=== PATIENT | female | born 1955 | race African-American/Black ===

== ENCOUNTER 2025-04-25 15:51 | Inpatient (IN) | payer OTHER, SELFPAY ==
[2025-04-25] VITALS (14 sets, daily range): BP systolic 100–136; BP diastolic 45–85; BMI 36.0
--- NOTE | 2025-04-25 10:24 | ED.GENMED ---
History of Present Illness
General
Chief Complaint: Weakness
Source: patient
Exam Limitations: clinical condition
Time Seen by Provider: 04/25/25 10:07
Nursing documentation reviewed up to this point in time: agreed with
History of Present Illness
History of Present Illness:
pt is a 69 y/o F
according to EMS 2 weeks post op kidney TXP [facility]
here with fever
pt has also apparently had some urinary incontinence and is wearing depends
she has a cough
pt is not reliable historian
For the patient's family for the past week she has been unable to get herself to the bathroom in time, she has been using depends, she is just generally weak and having urinary incontinence. Last night they noticed that she was breathing 'heavy'
and had a little bit of a cough but then this morning they noticed a fever of 101. They called the transplant center and spoke with the on-call transplant surgeon who recommended that she get taken to the emergency department. Apparently according
to the transplant surgeon whom I spoke with myself he says that her creatinine was 3.3 on blood work from a few days ago and her urinalysis was positive, preliminary culture which was positive for E. coli and staph. He says the sensitivities are
not back yet. He recommended broad-spectrum antibiotics and transfer to [facility] for admission.
Review of Systems
Review of Systems
Allergies reviewed?: Yes
Unable to obtain full review of systems at this time due to: due to acuity
All Other Systems: Not applicable
Phy Exam
Physical Exam
Physical Exam:
e coli
dr. aragon nephrology txp
cr 3.3
no imaging
GENERAL: Alert , tachypneic, weak
EYE: pupils equal and reactive
NECK: Supple
ENT: o/p clr, dry
CARDIAC: Regular rate and rhythm .
LUNGS: Clear breath sounds bilaterally, no acute respiratory distress, no wheezes/rales/rhonchi
ABDOMEN: Soft, without focal tenderness, no r/g, no cvat, normal bowel sounds
Depends soaked with foul-smelling urine
NEUROLOGICAL: Alert and oriented, no focal neuro deficits
SKIN: Warm and dry, skin intact.
MUSCULOSKELETAL: No edema, well perfused. neg diallo's sign
PSYCH: Normal and appropriate interaction.
Sepsis
Sepsis Screening
Sepsis Assessment: Sepsis Ruled Out
Sepsis Screen
Sepsis Screen: Sepsis Ruled Out
Date: 04/25/25
Time: 15:03
Course
Orders/Labs/Results
Orders:
Orders
04/25/25 10:21
Electrocardiogram (*1) Urgent
Reason for Study: Other
Other Reason for Exam: sepsis
Cardiac Monitoring- Treatment ONCE
EKG- Treatment ONCE
Straight cath- Treatment ONCE
Tacrolimus (Prograft - FK506) [S] Urgent
0.9% Sodium Chloride 1000 ml [Nss] 1,900 ml IV NOW STA
CR Chest Portable - 1 View Urgent
Comment:
Reason For Exam: FEVER, COUGH
Reason Study Needs to be Portable: Patient Unstable
04/25/25 10:25
COVID-19 Antigen Urgent
Source: Nasal Swab
Complete Blood Count/With Diff Urgent
Comprehensive Metabolic Panel Urgent
Lactic Acid Q4H
Comment: CANCEL 2nd LACTIC ACID IF 1st LACTIC ACID IS LESS THAN 2
Blood Culture Q30M
RERE Source: Blood/Venous
Specimen Description:
Influenza A+B Rapid Molecular Urgent
RERE Source: Nasal Swab
Specimen Description:
04/25/25 10:29
Urinalysis Reflex To Culture Urgent
Date Specimen was Collected: 04/25/25
Time Specimen was Collected: 10:28
Urine Microscopic Reflex Cult Urgent
Urine Culture Urgent
RERE Source: U
Specimen Description:
Date Specimen was Collected: 04/25/25
Time Specimen was Collected: 10:28
04/25/25 11:03
Cefepime HCl [Maxipime] 1,000 mg IV NOW STA
04/25/25 12:11
Blood Culture Q30M
RERE Source: Blood/Venous
Specimen Description:
04/25/25 12:13
Sterile Water [Sterile Water For Injection] 10 ml .ROUTE .STK-MED ONE
04/25/25 12:30
Acetaminophen [Tylenol] 1,000 mg PO NOW STA
04/25/25 12:37
Acetaminophen 1000MG/100Ml [Ofirmev] 1,000 mg in 100 ml IV ONCE
Acetaminophen IV Indication:: ED Narcotic Naive Pt-ONCE
Prednisone [Deltasone] 5 mg PO NOW STA
04/25/25 12:[address] [Myfortic Delayed Rel.] 360 mg PO NOW STA
Tacrolimus [Prograf] 1 mg PO NOW STA
04/25/25 14:30
Lactic Acid Q4H
Comment: CANCEL 2nd LACTIC ACID IF 1st LACTIC ACID IS LESS THAN 2
Abnormal Lab Results
04/25/25 04/25/25
10:25 10:29
RBC 2.79 L 10^6/uL
(4.70-6.10)
Hgb 8.3 L g/dL
(13.0-18.0)
Hct 26.6 L %
(39.0-52.0)
MCV 95.3 H fL
(80.0-94.0)
MCHC 31.2 L g/dL
(33.0-37.0)
RDW 19.0 H %
(11.5-14.5)
MPV 11.1 H fL
(7.4-10.4)
Abs Immat Gran (auto) 0.3 H 10^3/uL
(0-0.05)
Absolute Neuts (auto) 7.9 H 10^3/uL
(1.4-6.5)
Absolute Lymphs (auto) 0.2 L 10^3/uL
(1.2-3.4)
Absolute Monos (auto) 0.7 H 10^3/uL
(0.1-0.6)
Immature Gran % 3.2 H %
(0-0.5)
Neutrophils % 86.5 H %
(42.2-75.2)
Lymphocytes % 2.6 L %
(20.5-51.1)
Sodium 134 L mmol/L
(135-145)
BUN 74 H mg/dl
(7-17)
Creatinine 3.6 H mg/dL
(0.6-1.0)
Calcium 10.4 H mg/dl
(8.4-10.2)
Ur Occult Blood Reflex 4+ A
(Negative)
Leukocyte Esterase Rfl 3+ A
(Negative)
Urine RBC >100 A /HPF
(0-2)
Urine WBC (Reflex) >100 A /HPF
(0-5)
Urine Bacteria (Reflex) Moderate A
(Negative)
Urine Albumin (Reflex) 3+ A
(Neg - Trace)
04/25/25 10:25
04/25/25 10:25
Vital Signs
Initial and Last Documented VS:
Initial Vital Signs
Temp Pulse Resp Pulse Ox
39.4 C H 80 25 95
04/25/25 10:04 04/25/25 10:04 04/25/25 10:04 04/25/25 10:04
Last Documented Vital Signs
Temp Pulse Resp BP Pulse Ox
37.4 C 78 24 136/49 96
04/25/25 14:18 04/25/25 13:00 04/25/25 11:00 04/25/25 11:00 04/25/25 11:12
MDM/Problems Addressed
Differential Diagnosis Includes:
fever, transplant rejection, UTI/pyelo, pneumonia, covid
MDM/Problems Addressed:
69 y/o F
s/p renal TXP 02/21/25
gen weakness since coming home from [facility] 8 days ago
family says she was walking initially but the last couple of days she has not made it to the bathroom and she is sitting in it. She has also had a bit of difficulty breathing that started last night, breathing faster and occasionally coughing or
what sounded like choking on her spit. She is not vomiting. They noticed a temperature this morning of 101 and called the transplant center and spoke with Dr. Aragon who recommended that she come to the hospital. Patient came via EMS. She is
globally weak but awake and oriented. She is able to answer questions. She is tachypneic, appears dry. She has no abdominal tenderness. Patient had foul-smelling urine soaked depends, was incontinent but we were able to straight cath her to show
cloudy slightly pink-tinged urine. She also is occasionally coughing. She has not hypoxic. I spoke with Dr. Aragon myself who requested that the patient come to the hospital at [facility] to be admitted. At the this time he has results
from urine culture from 2 days ago showing E. coli without sensitivities. He recommended broad-spectrum antibiotics. The patient's baseline creatinine from 2 days ago was 3.3
He did not feel that the patient needed any imaging at this time. Will give her fluids, Tylenol, draw 2 sets of blood cultures and give antibiotic
04/25/2025 1502 PM
Unfortunately there are no beds at [facility] and they did not know when she would receive a bed so I did admit her to our hospital pending transfer and signed out to the hospitalist
*Pulse Oximetry
SaO2: 95
Oxygen Mode of Delivery: Room air
Patient hypoxic: no (95)
*Critical Care Note
Total Time (30-74mins, 75-104mins- exclusive of procedures): Not Applicable
ED Attending Note
-
Portions of this chart may have been created with voice recognition software.� Occasional wrong word or��sound alike� substitutions may have occurred due to the inherent limitations of voice recognition software.
Discharge Plan
Departure
Patient Disposition: Acute Care Hospital
Date of Disposition: 04/25/25
Time of Disposition:
Patient with high blood pressure during this ER visit?: No
Condition: Fair
Covid-19: Not Applicable
Discharge Problem:
Acute UTI, Fever
Prescriptions:
No Action
valganciclovir 450 mg Tablet
450 mg PO SUTUTHSA@0700
nystatin 100,000 unit/mL suspension
5 ml PO QID
metoprolol succinate 50 mg tablet extended release 24 hr
50 mg PO HS
sulfamethoxazole-trimethoprim [Bactrim] 400-80 mg Tablet
1 tab PO MOWEFR@2000
prednisone 5 mg Tablet
5 mg PO DAILY
nifedipine 30 mg tablet extended release
30 mg PO DAILY
omeprazole 40 mg capsule,delayed release(DR/EC)
40 mg PO DAILY
sertraline 25 mg tablet
25 mg PO DAILY
bumetanide 1 mg tablet
5 mg PO DAILY
Renal-Joyce 0.8 mg Tablet
1 tab PO DAILY
hydroxychloroquine 200 mg tablet
200 mg PO DAILY
tacrolimus [Prograf] 1 mg Capsule
1 mg PO DAILY@0700
repaglinide 1 mg tablet
1 mg PO MEALS
tacrolimus [Prograf] 0.5 mg Capsule
0.5 mg PO DAILY@1900
rosuvastatin 20 mg tablet
20 mg PO HS
mycophenolate sodium [Myfortic] 360 mg Tablet,Delayed Release (Dr/Ec)
360 mg PO BID
Aranesp (in polysorbate) 40 mcg/0.4 mL syringe
40 mcg SC WEEKLY
insulin glargine [Lantus Solostar U-100 Insulin] 100 unit/mL (3 mL) insulin pen
10 unit SC HS
cholecalciferol (vitamin D3) [Vitamin D3] 50 mcg (2,000 unit) Capsule
50 mcg PO HS
Multaq 400 mg tablet
40 mg PO BID
Nulojix 250 mg Recon Soln
250 mg IV Q2W
Eliquis 2.5 mg tablet
2.5 mg PO BID
magnesium oxide 200 mg magnesium Tablet
200 mg PO BID
Referrals:
NONE,* [Family Provider, Internal Medicine]
Hospital Transfer
Other hospital: [facility]
I certify that the patient requires transfer: Yes
Discussed case with accepting physician: Moe
Reason for transfer: higher level of care and specialties available
Interventions
Interventions:
*Risk Screen - Suicide Last Done: 04/25/25 11:14
*General Assessment Last Done: 04/25/25 11:13
*Neglect/Abuse Screening Last Done: 04/25/25 11:14
*ED COVID-19 Vaccine History Last Done: 04/25/25 11:13
*ED Influenza Vaccine History Last Done: 04/25/25 11:13
Discharge Date and Time
Print Language: FAROESE
[2025-04-25 10:41] LABS: Hematocrit 26.6 % (39.0-52.0); Hemoglobin 8.3 g/dL (13.0-18.0); Mean Corp Hgb Conc. 31.2 g/dL (33.0-37.0); Mean Corpuscular Volume 95.3 fL (80.0-94.0); Nucleated Red Blood Cells % 0.4 % (-); Platelet Count 207 10^3/uL (130-400); Red Cell Dist. Width 19.0 % (11.5-14.5)
[2025-04-25 10:56] LABS: ALT (SGPT) 12 U/L (0-35); AST (SGOT) 16 U/L (14-36); Albumin 3.9 g/dl (3.5-5.0); Alkaline Phosphatase 65 U/L (38-126); Blood Urea Nitrogen 74 mg/dl (7-17); Calcium 10.4 mg/dl (8.4-10.2); Carbon Dioxide 23 mmol/L (22-30); Chloride 104 mmol/L (98-107); Estimated Creatinine Clearance 18 ml/min; Glucose 71 mg/dl (70-99); Potassium 4.6 mmol/L (3.5-5.1); Sodium 134 mmol/L (135-145); Total Protein 6.4 g/dl (6.3-8.2); eGFR 13.19
[2025-04-25 11:07] LABS: Urine Character Cloudy (Clear)
[2025-04-25 11:20] LABS: COVID-19 Antigen Negative (Negative)
[2025-04-25] MEDS: NSS 1900 ML IV (11:20)
[2025-04-25 11:57] LABS: Urine Red Blood Cell >100 /HPF (0-2)
[2025-04-25 12:00] LABS: Urine White Cell >100 /HPF (0-5)
[2025-04-25] MEDS: MAXIPIME 1000 MG IV (12:15)
[2025-04-25] MEDS: OFIRMEV 100 IV (12:49)
[2025-04-25] MEDS: MYFORTIC DELAYED REL. 360 MG PO ×2 (13:29→21:39)
[2025-04-25] MEDS: PROGRAF 1 MG PO (13:29)
[2025-04-25] MEDS: DELTASONE 5 MG PO (13:29)
--- NOTE | 2025-04-25 14:20 | W.PN.UPDATE ---
Update Note
Progress Note Update
This note serves as an addendum to the H&P by instructor flying JANE�
Guerita Becerra
No prior admission to
HPI
69F Recent KTP (02/21/25) at [facility] seen at ER:
- BIB EMS
- pw fever T max 103.0
- reports some urinary incontinence and is wearing depends pad
- per family for the past week so weak that she has been unable to get herself to the bathroom in time, she has been using depends
- having urinary incontinence.
- Last night they noticed that she was breathing 'heavy' and had a little bit of a cough but then this morning they noticed a fever of 101.
Family called t center and spoke with the on-call transplant surgeon who recommended that she get taken to the emergency department.
Per ER BURIAL VAULT SETTER who spoke with TP surgeon( Dr Aragon) reports that Cr 3.3 on blood work from a few days ago and her urinalysis was positive, preliminary culture which was positive for E. coli and staph. He says the sensitivities are not back yet.
He recommended broad-spectrum antibiotics and transfer to [facility] for admission.
Patient is accepted to [facility] but no bed yet per ER AP
PHX:
KTP on immunosuppressants
IDDM
Essential HTN
Chr eliquis
Relevant VS
Vital Signs
Temp Pulse Resp BP Pulse Ox
99.4 F ( T max 103 at ER ) 78 24 136/49 96
04/25/25 14:18 04/25/25 13:00 04/25/25 11:00 04/25/25 11:00 04/25/25 11:12
PE
Gen: Obese , class II BMI ( 35.9), looks tired but apprpriate
HEENT: anicteric , moist OM
Neck: supple
Lungs: Rhonchi both lungs R > L
Cor: RRR S1 S2
Abdomen:�soft NT NG
ASBESTOS TEXTILE SUPERVISOR: awake and alert
MS: wearing b/l compression stockings
Psych: Nl mood and affect
Relevant Data�
Labs
04/25/25 04/25/25
10: 14:30
WBC 9.1
Hgb 8.3 L
Plt Count 207
Sodium 134 L
Potassium 4.6
Chloride 104
Carbon Dioxide 23
BUN 74 H
Creatinine 3.6 H
eGFR 13.19
Lactic Acid 1.6 Pending
04/25/25
10:29
Urine Color Red
Urine Clarity Cloudy
Ur Occult Blood Reflex 4+ A
Leukocyte Esterase Rfl 3+ A
Urine RBC >100 A
Urine WBC (Reflex) >100 A
Urine Bacteria (Reflex) Moderate A
EKG
NORMAL SINUS RHYTHM
NON-SPECIFIC INTRA-VENTRICULAR CONDUCTION BLOCK
MINIMAL VOLTAGE CRITERIA FOR LVH, MAY BE NORMAL VARIANT ( Dmitriy product )
CANNOT RULE OUT SEPTAL INFARCT , AGE UNDETERMINED
ABNORMAL ECG
NO PREVIOUS ECGS AVAILABLE
CXR
Right suprahilar consolidation may reflect atelectasis, pneumonia or mass/lymphadenopathy.
Recommend correlation with any prior chest imaging. Consider further evaluation with dedicated contrast-enhanced CT chest.
NO PRIOR hospitalist admission:
ASSESSMENT & PLAN
Presumed sepsis due to complicated UTI of TP Kidney - s/p 1.9 L NS at ER
CONFECTIONERY DROPS MACHINE OPERATOR POS preliminary UCX positive for E. coli and staph - reports from TP surgeon per ER AP
- Somewhat HD status is stable
- UCx and BCx sent
- Agree with IV CFP
- Tylenol PRN for T > 100.5
- To consider ID consult if patient is still in [facility] in tomorrow AM
Renal insufficiency ( ANGELO ? ) of recent TP kidney ( [facility] donor ?)
- Prior HX HD via Lt arm AVF
- Hold Bumetanide to current presumed ANGELO ( curbside consult to Dr Herman)
- Trend Cr and UO
- Pending Tacrolimus level - unless it was done 1 hrs after the dose
- otherwise c/w all OP medications
- To consider Renal consult if patient is still in [facility] in tomorrow AM
Wheeze and Rhonchi R > Lt lungs
Right suprahilar consolidation
- c/w IV CFP
- add Azithromycin
- DuoNebs qid and PRN
Benign HTN
- c/w CONFECTIONERY DROPS MACHINE OPERATOR Metoprolol
IDDM
- to give only 50 % of CONFECTIONERY DROPS MACHINE OPERATOR Lantus
- add ISS low
HX Prx AF
- c/w CONFECTIONERY DROPS MACHINE OPERATOR Eliquis
DVT Px: on chr Eliquis
Full code
IP MS
--- NOTE | 2025-04-25 14:22 | HPS.HSE ---
Family Physician
-
Family Physician: * NONE
Chief Complaint
-
generalized weakness
History of Present Illness
Patient is a 69-year-old female with past medical history significant for chronic kidney disease s/p kidney transplant, hypertension, hyperlipidemia, GERD, chronic anemia, paroxysmal atrial fibrillation, type 2 diabetes and depression/anxiety who
presented to [facility] ED for evaluation of generalized weakness. Patient family brought patient for evaluation after speaking with transplant surgeon this morning and describing recent symptoms of inability to get herself to restroom related to
weakness, new onset incontinence, increased respiratory rate and fever. ED documentation states that surgeon reported that patients creatine was 3.3 a few days ago on blood work and urinalysis was positive and culture still pending final report
(preliminary report indicated E. coli and staph).
Medical History
Past Medical History
Past Medical History: Reports Other
Additional Past Medical History:
chronic kidney disease
hypertension
hyperlipidemia
GERD
chronic anemia
paroxysmal atrial fibrillation
type 2 diabetes
depression/anxiety
Past Surgical History: Reports Other
Additional Past Surgical History:
kidney transplant at [facility] 02/21/2025
LUE fistula
Social History
Tobacco: Former Smoker
Alcohol: None
Drug: None
Living: With Family
Family History
Family History: Not pertinent
Allergies / Home Medications
Allergies reflects when Allergies were last updated in [employer].
Home Medications with original date entered in [employer]
Allergy/Medication List:
Allergies
Allergy/AdvReac Type Severity Reaction Status Date / Time
No Known Allergies Allergy Unverified 04/25/25 10:03
Home Medications
apixaban 2.5 mg tablet (Eliquis) 2.5 mg PO BID 04/25/25
belatacept 250 mg intravenous solution (Nulojix) 250 mg IV Q2W 04/25/25
bumetanide 1 mg tablet 5 mg PO DAILY 04/25/25
cholecalciferol (vitamin D3) 50 mcg (2,000 unit) capsule (Vitamin D3) 50 mcg PO HS 04/25/25
darbepoetin adriana in polysorbat 40 mcg/0.4 mL in polysorbate injection syringe (Aranesp) 40 mcg SC WEEKLY 04/25/25
dronedarone 400 mg tablet (Multaq) 40 mg PO BID 04/25/25
hydroxychloroquine 200 mg tablet 200 mg PO DAILY 04/25/25
insulin glargine 100 unit/mL (3 mL) subcutaneous pen (Lantus Solostar U-100 Insulin) 10 unit SC HS 04/25/25
magnesium oxide 200 mg PO BID 04/25/25
metoprolol succinate 50 mg tablet,extended release 24 hr 50 mg PO HS 04/25/25
mycophenolate sodium 360 mg tablet,delayed release (Myfortic) 360 mg PO BID 04/25/25
nifedipine 30 mg tablet,extended release 30 mg PO DAILY 04/25/25
nystatin 100,000 unit/mL oral suspension 5 ml PO QID 04/25/25
omeprazole 40 mg capsule,delayed release 40 mg PO DAILY 04/25/25
prednisone 5 mg tablet 5 mg PO DAILY 04/25/25
repaglinide 1 mg tablet 1 mg PO MEALS 04/25/25
rosuvastatin 20 mg tablet 20 mg PO HS 04/25/25
sertraline 25 mg tablet 25 mg PO DAILY 04/25/25
sulfamethoxazole 400 mg-trimethoprim 80 mg tablet (Bactrim) 1 tab PO MOWEFR@199904/25/25
tacrolimus 0.5 mg capsule, immediate-release (Prograf) 0.5 mg PO DAILY@1900 04/25/25
tacrolimus 1 mg capsule, immediate-release (Prograf) 1 mg PO DAILY@0700 04/25/25
valganciclovir 450 mg tablet 450 mg PO SUTUTHSA@0704/25/25
vitamin B complex-vitamin C-folic acid 0.8 mg tablet (Renal-Joyce) 1 tab PO DAILY 04/25/25
Review of Systems
-
History Source: Patient and Other (chart review )
Constitutional: Reports Fever and Fatigue; Denies Chills
EENT: Denies Sore Throat
Respiratory: Reports Cough and Trouble Breathing (dyspnea ); Denies Hemoptysis
Cardiac: Denies Chest Pain, Diaphoresis, Palpitations or Syncope
Abdomen/GI: Denies Abdominal Pain, Nausea, Vomiting or Diarrhea
: Reports Frequency and Incontinence; Denies Dysuria or Urgency
Musculoskeletal: Denies Joint Pain
Skin: Denies Rash
Neurological: Reports Weakness; Denies Dizzy, Headache or Numbness
Endocrine: Denies Polyuria or Polydipsia
Hematologic/Lymphatic: Denies Bleeding
Physical Exam
Vital Signs
Vital Signs
Temp Pulse Resp BP Pulse Ox
99.4 F 78 24 136/49 96
04/25/25 14:18 04/25/25 13:00 04/25/25 11:00 04/25/25 11:00 04/25/25 11:12
Physical Exam
General: Well Developed, Well Nourished, Comfortable, Conversant and Obese
HEENT: NormoCephalic, PERRLA, Nose Appears Normal and Ears Appear Normal
Respiratory: Wheezes, Rhonchi, Non Labored Respirations and Other (moist cough observed ); No Rales or Crackles
Cardiac: Regular Rhythm and Peripheral Edema
GI: Soft, Non Tender, Non Distended and Normal Bowel Sounds
Musculoskeletal: No Clubbing and No Cyanosis
Skin: Warm, Dry and IV/Catheter Site
Neuro: Awake and AO x 3
Psych: Calm
Laboratory Results
-
04/25/25 10:25
04/25/25 10:25
Laboratory Results
Lactic Acid 1.6 mmol/L (0.7-2.0) 04/25/25 10:25
Total Bilirubin 0.9 mg/dl (0.2-1.3) 04/25/25 10:25
AST 16 U/L (14-36) 04/25/25 10:25
ALT 12 U/L (0-35) 04/25/25 10:25
Alkaline Phosphatase 65 U/L (38-126) 04/25/25 10:25
Data Reviewed
-
Diagnostic Radiology: Report Reviewed by me (CXR: Right suprahilar consolidation may reflect atelectasis, pneumonia or mass/lymphadenopathy. Recommend correlation with any prior chest imaging. Consider further evaluation with dedicated
contrast-enhanced CT chest.)
Lab Data: Labs Reviewed by me (hgb 8.3, hct 26.6, neut 86.5, Na 134, BUN 74, Creat 3.6, est CrCl 18, eGFR 13.19)
Impression/Plan
-
IMPRESSION/PLAN:
#urinary tract infection
generalized weakness, fever and new onset incontinence
out patient urinary cx: preliminary report indicated E. coli and staph
T-max 103.0
neut 86.5
EKG: NORMAL SINUS RHYTHM
NON-SPECIFIC INTRA-VENTRICULAR CONDUCTION BLOCK
MINIMAL VOLTAGE CRITERIA FOR LVH, MAY BE NORMAL VARIANT ( Irvona product )
CANNOT RULE OUT SEPTAL INFARCT , AGE UNDETERMINED
CXR: Right suprahilar consolidation may reflect atelectasis, pneumonia or mass/lymphadenopathy. Recommend correlation with any prior chest imaging. Consider further evaluation with
dedicated contrast-enhanced CT chest.
- Admit to med/surg
- IV Cefepime
#acute kidney injury on chronic kidney disease?
s/p kidney transplant at [facility] 02/21/2025
Na 134, BUN 74, Creat 3.6, est CrCl 18, eGFR 13.19
[facility] surgeon reported that patients creatine was 3.3 a few days ago
- continue tacrolimus and valganciclovir
- hold bumetanide
- trend BMP
#COPD
#pneumonia?
wheezing present, rhonchi R>L, with moist cough on assessment
Influenza: negative
Covid: negative
- start Azithromycin
- PRN DuoNebs
#hypertension
- continue nifedipine
#hyperlipidemia
- continue rosuvastatin
#GERD
- continue omeprazole
#chronic anemia
hgb 8.3, hct 26.6
- continue darbepoetin out patient
#paroxysmal atrial fibrillation
- continue dronedarone and metoprolol
#type 2 diabetes
- AccuCheck AC & HS
- SSI
- continue Lantus at half dose
- continue repaglinide
#depression/anxiety
- continue sertraline
Code status: Full code
DVT prophylaxis: Eliquis
--- NOTE | 2025-04-25 16:22 | CM ---
Chart reviewed and spoke with patient, dtr Giovanna and GILBERT at ED bedside
Per dtr [facility] has no bed today but plan is still to tx back to [facility]
Per dtr s/p Kidney transplant on 02/21/2025
pt was discharged to [facility] for rehab for 1 1/2 weeks then admitted back to [facility]
DC to [facility] again .
Prior to admission patient was living with dtr Giovanna and GILBERT in [place] for 1 week or so
Was open to [facility] at home
Pt lives alone in [place]
Dtr's place 1 story 2 PETTY
DME walker and cane
PLOF needs assistance with ADLs and ambulation
PCP Dr. Perez in [place]
RX plan yes
Pharmacy [facility] in [place]
HX of [facility] at home
HX of [facility]
DCP is tx back to [facility] hospital once bed available
CM will continue to follow up for dcp needs
[2025-04-25 21:28] LABS: Glucose - Point of Care 89 mg/dl (70-99)
[2025-04-25] MEDS: LANTUS 0.05 UNITS SC (21:38)
[2025-04-25] MEDS: MULTAQ 400 MG PO (21:39)
[2025-04-25] MEDS: CRESTOR 20 MG PO (21:40)
[2025-04-25] MEDS: ELIQUIS 2.5 MG PO (21:41)
[2025-04-25] MEDS: MAGNESIUM OXIDE 200 MG PO (21:41)
[2025-04-25] MEDS: TOPROL XL 50 MG PO (21:42)
[2025-04-25] MEDS: VITAMIN D3 (cholecalciferol) 50 MCG PO (21:42)
[2025-04-25] MEDS: MYCOSTATIN ORAL SUSPENSION 5 ML PO (21:43)
[2025-04-25] MEDS: PROGRAF 0.5 MG PO (22:15)
[2025-04-25 23:16] LABS: Glucose - Point of Care 77 mg/dl (70-99)
[2025-04-25] MEDS: TYLENOL 650 MG PO (23:35)
[2025-04-26] VITALS: BP 131/51
[2025-04-26] MEDS: STERILE WATER FOR INJECTION 10 ML IV (00:27)
[2025-04-26] MEDS: MAXIPIME 1000 MG IV (00:27)
[2025-04-26 00:49] LABS: Glucose - Point of Care 94 mg/dl (70-99)
== END 2025-04-26 01:30 | disposition short-term general hospital (02) | DRG 690 ==
LOC: ED 15:51
PROVIDERS: Physician Assistant; ADMITTING PHYSICIAN Internal Medicine; EMERGENCY PHYSICIAN Student in an Organized Health Care Education/Training Program
DX: N39.0 Urinary tract infection, site not specified (principal); T86.19 Other complication of kidney transplant; N17.9 Acute kidney failure, unspecified; Z11.52 Encounter for screening for COVID-19; Z87.891 Personal history of nicotine dependence; Y83.0 Surgical operation with transplant of whole organ as the cause of abnormal reaction of the patient, or of later complication, without mention of misadventure at the time of the procedure; E11.22 Type 2 diabetes mellitus with diabetic chronic kidney disease; I12.9 Hypertensive chronic kidney disease with stage 1 through stage 4 chronic kidney disease, or unspecified chronic kidney disease; N18.9 Chronic kidney disease, unspecified; I48.0 Paroxysmal atrial fibrillation; K21.9 Gastro-esophageal reflux disease without esophagitis; E78.5 Hyperlipidemia, unspecified; F41.9 Anxiety disorder, unspecified; F32.A Depression, unspecified; Z79.4 Long term (current) use of insulin; Z79.60 Long term (current) use of unspecified immunomodulators and immunosuppressants
CPT/HCPCS: 71045; 80053; 81003; 81015; 82962; 83605; 85025; 87040; 87077; 87086; 87154; 87186; 87205; 87502; 87811; 93005; 96374; 96375; 99285